=== PATIENT | female | born 1950 | race Caucasian/White ===

== ENCOUNTER → 2024-01-19 | Outpatient (CLI) | payer MEDICARE, OTHER, SELFPAY ==
--- NOTE | 2024-01-19 14:50 | RAD_ITS ---
INDICATION: Postlaminectomy syndrome, not elsewhere classified EXAMINATION/TECHNIQUE: X-RAY - XR Spine Cervical 2 or 3 Views COMPARISON: No relevant prior comparison study available FINDINGS: C6 and C7 vertebrae are not well seen on the lateral view. Anterior fusion of C3, C4, C5 and C6 with plates and screws. The alignment of the vertebral bodies appears to be unremarkable although suboptimally visualized in the lower cervical spine. Straightening of the cervical spine. Facet arthropathy at the levels of C3-C4 and C4-C5. No prevertebral soft tissue swelling. RAD/Cerv Spine 2 or 3 Views IMPRESSION: Postoperative changes as described above. Electronically Signed: Franco Tabor MD at 9:45 EDT ,
--- NOTE | 2024-01-19 14:50 | RAD_ITS ---
EXAM: XR LUMBOSACRAL SPINE, 2 OR 3 VIEWS CLINICAL INDICATION: Postlaminectomy syndrome, not elsewhere classified TECHNIQUE: Frontal and lateral views of the lumbar spine and sacrum. COMPARISON: No relevant prior studies available. FINDINGS: VERTEBRAE: Diffuse surgical fusion of the lumbar spine. Interpedicular screws are in place at T11, T12, L1, L2 and L3. There is loss of the normal lumbar lordosis. Levoscoliosis centered at the T12-L1 junction with Farnsworth angle is 27 degrees. DISC SPACES: The T12, L1 and L2 vertebral bodies appear fused. Disc spaces are otherwise narrowed at the lower thoracic and lower lumbar level. VASCULATURE: There appears to be a 3.3 cm calcified infrarenal abdominal aortic aneurysm. OTHER FINDINGS: Right hip prosthesis in place. RAD/Lumbar Spine 2 or 3 Views IMPRESSION: 1. Extensive postoperative and degenerative changes as described. 2. Aortic aneurysm. Electronically Signed: Murtaza Hines MD at 12:34 EDT ,
== END | disposition home or self-care (01) ==
PROVIDERS: Referring Provider Anesthesiology Pain Medicine; Visit Provider Anesthesiology Pain Medicine
DX: M96.1 Postlaminectomy syndrome, not elsewhere classified (principal)
CPT/HCPCS: 72040; 72100